=== PATIENT | male | born 1980 | race American Indian/Alaskan Native ===

== ENCOUNTER 2017-05-30 12:11 | Emergency (ER) | payer OTHER ==
[2017-05-30] MEDS ORDERED: TYLENOL PO ONE (16:08)
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
--- NOTE | 2017-05-30 18:17 | XRay Report ---
FINAL REPORT PROCEDURE: XR RIBS UNI W PA CHEST 3+V RT TECHNIQUE: Single-view chest two views right ribs state HISTORY: right side rib pain COMPARISON: No prior studies are available for comparison. FINDINGS: Heart is not enlarged. Lungs are clear. No evidence of displaced rib fracture seen at this time. IMPRESSION: No displaced rib fracture seen at this time. If symptoms and or concern persists recommend CT scan chest.
[2017-05-30 18:52] VITALS: BP 125/77
== END 2017-05-30 18:54 | disposition home or self-care (01) ==
LOC: ED 12:11
DX: R10.9 Unspecified abdominal pain (principal); R51 Headache
CPT/HCPCS: 70450; 99284